=== PATIENT | female | born 1990 | race Caucasian/White ===

== ENCOUNTER 2023-10-04 09:57 | Outpatient (CLI) | payer BC, SELFPAY ==
--- NOTE | ~2023-10-04 | XR_ITS ---
XR lumbar spine 2-3V DATE: 10/04/2023 10:13 INDICATION: Right sciatica for one month TECHNIQUE: AP, lateral, coned lateral lumbosacral views COMPARISON: None FINDINGS: There is slight dextroscoliosis of the lumbar spine. Normal alignment of the lumbar vertebr ae. No fracture or bone destruction or spondylolisthesis. The lumbar and included lower thoracic pedi cles are intact. Lumbar and lumbosacral interspaces are well preserved. The sacroiliac joints are int act. IMPRESSION: Slight dextroscoliosis; otherwise negative Reviewed, dictated and finalized at location B.
== END 2023-10-04 09:58 ==
LOC: MICIMG 10:02
PROVIDERS: PCP Physician Assistant; Visit Provider Physician Assistant
DX: M54.41 Lumbago with sciatica, right side (principal); G89.29 Other chronic pain; M41.86 Other forms of scoliosis, lumbar region
CPT/HCPCS: 72100